=== PATIENT | female | born 1995 | race African-American/Black ===

== ENCOUNTER 2022-06-27 15:25 | Outpatient (CLI) | payer BC ==
[2022-06-27 16:34] LABS: BHCG - Serum Negative (NEGATIVE); Pregs Control Background? CLEAR/WHITE (CLR/WHITE); Pregs Control Bar Appear? YES (CONTROL BAR)
[2022-06-27 16:35] LABS: Hemoglobin 11.1 g/dL (12.0-15.5); Mean Corpuscular HGB CONC 32.6 g/dL (32.0-36.0); Mean Corpuscular Hemoglobin 26.5 pg (27.0-33.0); Mean Corpuscular Volume 81.4 fl (81.6-98.3); Platelet Count 339 10x3/uL (150-450); RBC Distribution Width 15.6 % (11.5-14.5); Red Blood Cell (RBC) Count 4.19 10x6/uL (3.90-5.03); White Blood Cell (WBC) Count 5.4 10x3/uL (3.5-10.5)
== END 2022-06-27 15:26 | disposition home or self-care (01) ==
LOC: LABBT 15:25
PROVIDERS: ATTEND Orthopaedic Surgery Hand Surgery
DX: Z01.812 Encounter for preprocedural laboratory examination (principal); S61.212A Laceration without foreign body of right middle finger without damage to nail, initial encounter; S64.40XA Injury of digital nerve of unspecified finger, initial encounter
CPT/HCPCS: 84703; 85027

== ENCOUNTER 2022-06-29 08:12 | Day surgery (SDC) | payer BC ==
[2022-06-28 12:59] VITALS: BMI 42.5
[2022-06-29] MEDS ORDERED: Betamet Acet/Betamet Na Ph 30 MG/5 ML VIAL ONE ×2 (12:20→12:21)
[2022-06-29] MEDS ORDERED: Neomycin-Polymyxin 1 ML AMP ONE ×2 (12:20→12:21)
[2022-06-29] MEDS ORDERED: Bupivacaine PF 0.5% 30 ML VIAL ONE (12:20)
[2022-06-29] MEDS ORDERED: Bacitracin Zinc Ointment 30 gm TUBE ONE (12:20)
[2022-06-29] MEDS ORDERED: CEFAZOLIN 2 GM VIAL ONE (12:44)
[2022-06-29] MEDS ORDERED: Sodium Chloride 0.9% 100 ML ONE (12:44)
[2022-06-29] MEDS ORDERED: PROPOFOL 200 MG/20 ML VIAL ONE (13:05)
[2022-06-29] MEDS ORDERED: Rocuronium Bromide 10 MG/ML (10ML VIAL) ONE (13:05)
[2022-06-29] MEDS ORDERED: GLYCOPYRROLATE/PF 0.2 MG/ML VIAL ONE (13:05)
[2022-06-29] MEDS ORDERED: Ondansetron PF 4 MG/2 ML Vial ONE (13:05)
[2022-06-29] MEDS ORDERED: NEOSTIGMINE 3 MG/3 ML SYR 3 MG/3 ML SYRINGE ONE (13:05)
[2022-06-29] MEDS ORDERED: Dexamethasone 20 MG/5 ML VIAL ONE (13:05)
[2022-06-29] MEDS ORDERED: fentaNYL PF 100 MCG/2 ML SYRINGE ONE (16:16)
[2022-06-29] MEDS ORDERED: HYDROmorphone 0.5 MG/0.5 ML SYRINGE ONE (16:16)
[2022-06-29] MEDS ORDERED: FENTANYL 50 MCG/ML 1 ML VIAL ONE ×2 (18:14→18:37)
[2022-06-29] MEDS ORDERED: Ketorolac Tromethamine 30 MG/ML VIAL ONE ×2 (18:42→19:04)
[2022-06-29] MEDS ORDERED: HYDROcodone/Acetaminophen 5/325 mg Tablet ONE (19:19)
== END 2022-06-29 20:10 | disposition home or self-care (01) ==
LOC: SDC 08:12
PROVIDERS: ATTEND Orthopaedic Surgery Hand Surgery
PROC: 0LM70ZZ Reattachment of Right Hand Tendon, Open Approach (ICD-10-PCS; principal; 2022-06-29)
PROC: 01Q40ZZ Repair Ulnar Nerve, Open Approach (ICD-10-PCS; principal; 2022-06-29)
DX: S66.122A Laceration of flexor muscle, fascia and tendon of right middle finger at wrist and hand level, initial encounter (principal); S66.124A Laceration of flexor muscle, fascia and tendon of right ring finger at wrist and hand level, initial encounter; S64.492A Injury of digital nerve of right middle finger, initial encounter; S64.494A Injury of digital nerve of right ring finger, initial encounter; M20.011 Mallet finger of right finger(s); F17.200 Nicotine dependence, unspecified, uncomplicated; W26.8XXA Contact with other sharp object(s), not elsewhere classified, initial encounter
CPT/HCPCS: J0702; J1100; J1170; J1885; J2405; J2704; J3010; J3490; S0020

== ENCOUNTER 2023-08-19 10:38 | Emergency (ER) | payer OTHER ==
[2023-08-19] MEDS ORDERED: Acetaminophen 500 MG TAB ONE (11:23)
[2023-08-19] MEDS ORDERED: Ketorolac Tromethamine 30 MG (1 mL) VIAL ONE (11:23)
[2023-08-19 11:36] LABS: #Eosinphils 0.2 thou/uL (0.0-0.7); #Monocytes 0.4 thou/uL (0.11-0.59); %Basophils 0.4 % (0.0-1.0); %Lymphocytes 29.1 % (21.0-51.0); %Monocytes 5.3 % (0.0-10.0); Hematocrit 36.7 % (36.0-47.0); Mean Corpuscular HGB CONC 32.7 g/dL (32.0-36.0); Mean Corpuscular Hemoglobin 27.6 pg (27.0-31.0); Mean Corpuscular Volume 84.4 fl (78.0-98.0); Mean Platelet Volume 8.8 fL (7.4-10.4); Platelet Count 304 10x3/uL (130-400); RBC Distribution Width 16.5 % (11.5-14.5); Red Blood Cell (RBC) Count 4.35 mill/uL (4.20-5.40)
[2023-08-19 11:59] LABS: ALT (SGPT) 15 U/L (8-55); AST (SGOT) 16 U/L (5-34); Albumin 3.3 g/dL (3.5-5.0); Alkaline Phosphatase 55 U/L (40-110); Anion Gap 12 mmol/L (10-20); BUN (Urea Nitrogen) 13 mg/dL (7.0-18.7); Bilirubin, Total Less than 0.2 mg/dL (0.2-1.2); Calc. Creatinine Clearance 0 mL/min (70-130); Calcium 9.2 mg/dL (7.8-10.44); Carbon Dioxide 23 mmol/L (22-29); Chloride 107 mmol/L (98-107); Estimated GFR 89; Glucose 133 mg/dL (70-105); Potassium 4.2 mmol/L (3.5-5.1); Protein, Total 7.3 g/dL (6.0-8.3); Sodium 138 mmol/L (136-145)
[2023-08-19 12:28] LABS: Bacteria/HPF None Seen HPF (None Seen); Bilirubin Negative (Negative); Blood, Urine 3+ (Negative); CAUTI Indications for Culture Acute Hematuria; Glucose, Urine (Dipstick) Normal (Negative); Ketone, Urine Negative (Negative); Leukocyte 75 Leu/uL (Negative); Nitrite Negative (Negative); Protein, Urine (Dipstick) 20 mg/dL (Neg-Trace); RBC/HPF 0-3 HPF (0-3); Specific Gravity, Urine 1.032 (1.002-1.036); Urobilinogen Normal mg/dL (Less than 2); pH, Urine 5.5 (5.0-9.0)
[2023-08-19 12:29] LABS: Clarity Hazy (Clear)
[2023-08-19 12:30] LABS: Pregnancy Test - Urine (BHCG) Negative (Negative); Pregu Control Background? CLEAR/WHITE (CLR/WHITE); Pregu Control Bar Appear? YES (CONTROL BAR); Specific Gravity 1.032 (1.002-1.036)
[2023-08-19 12:31] LABS: Urine Culture Reflex Yes Yes
== END 2023-08-19 13:33 | disposition home or self-care (01) ==
LOC: ERS 10:38
DX: N94.6 Dysmenorrhea, unspecified (principal); F17.210 Nicotine dependence, cigarettes, uncomplicated
CPT/HCPCS: 36415; 80053; 81001; 81025; 85025; 87086; 96372; 99284; J1885